=== PATIENT | female | born 2000 | race Asian ===

== ENCOUNTER 2021-09-28 22:37 | Emergency (ER) | payer OTHER ==
[~2021-09-28] VITALS: Ht 167.6 cm; Wt 45.4 kg
== END 2021-09-29 00:36 | disposition home or self-care (01) ==
LOC: ER 22:37
DX: S30.810A Abrasion of lower back and pelvis, initial encounter (principal); V80.010A Animal-rider injured by fall from or being thrown from horse in noncollision accident, initial encounter; Y93.I9 Activity, other involving external motion; Y92.9 Unspecified place or not applicable